=== PATIENT | male | born 1970 | race Two or more races ===

== ENCOUNTER 2018-01-06 16:52 | Inpatient (IN) | payer OTHER ==
[~2018-01-06] VITALS: Ht 175.3 cm; Wt 81.8 kg
[~2018-01-06 16:52] MED LIST: CLON2TAB3; DIVA500T59; ZOLP10TA6
[2018-01-06 18:33] LABS: Basophils # (auto) 0.1 uL; Basophils % (auto) 0.5 % (0.0-2.0); Eosinophils # (auto) 0.6 uL; Eosinophils % (auto) 6.1 % (0.0-7.0); Hematocrit 41.7 % (41.0-53.0); Hemoglobin 14.1 g/dL (13.5-17.5); Lymphocytes # (auto) 1.6 uL; Lymphocytes % (auto) 14.8 % (10.0-50.0); Mean Corpuscular Hemoglobin 30.8 pg (28.0-32.0); Mean Corpuscular Hgb Conc. 33.8 g/dL (32.0-36.0); Mean Corpuscular Volume 91.1 fL (80.0-100.0); Monocytes % (auto) 9.8 % (0.0-12.0); Neutrophils # (auto) 7.3 uL; Neutrophils % (auto) 68.8 % (37.0-80.0); Nucleated Red Blood Cells % 0.1 %; Platelet Count (auto) 230 10^3/uL (140-450); Red Blood Cells 4.58 10^6/uL (4.5-5.90); Red Cell Distribution Width 13.6 % (11.8-14.3); White Blood Cell 10.6 10^3/uL (4.4-10.8)
[2018-01-06 18:48] LABS: Albumin 2.9 g/dL (3.4-5.0); BUN/Creatinine Ratio 14.4; Calcium 8.3 mg/dL (8.5-10.1)
[2018-01-06 18:51] LABS: Bilirubin, Total 0.2 mg/dL (0.2-1.0); Total Protein 6.5 g/dL (6.4-8.2)
[2018-01-06] MEDS ORDERED: SODIUM CHLORIDE 0.9% 1,000 ML IVB ONE (19:02)
[2018-01-06] MEDS ORDERED: cefTRIAXone 1GM/10ml IVPUSH 10 ML IV ONE (19:15)
[2018-01-06] MEDS: LACTATED RINGER'S 1,000 ML IV SCH ×3 (20:00→23:40)
[2018-01-06 20:06] LABS: INR 0.92 (0.9-1.15); Partial Thromboplastin Time 30.5 sec (22.64-33.71)
[2018-01-06] MEDS ORDERED: ACETAMINOPHEN 500 MG TAB PO PRN (20:45)
[2018-01-06] MEDS ORDERED: HYDROcodone-ACET 5/325MG TAB PO PRN (20:45)
[2018-01-06] MEDS: ONDANSETRON HCL 4 MG/2 ML VIAL IV PRN (20:51)
[2018-01-06] MEDS: MORPHINE SULFATE 8mg/ml INJ SDV IV PRN (20:51)
[2018-01-06 21:30] VITALS: BP 100/53
[2018-01-06] MEDS: TEMAZEPAM 15 MG CAP PO PRN (23:36)
[2018-01-07] MEDS ORDERED: risperiDONE 1 MG TAB PO ONE
[2018-01-07 04:54] VITALS: BP 92/50
[2018-01-07] MEDS ORDERED: SUCCINYLCHOLINE CHLORIDE 20 MG/ML 10ML VIAL IV ONE (07:02)
[2018-01-07] MEDS ORDERED: LIDOCAINE 1% (LOCAL ANESTH.) PF 5ml SDV ONE (07:02)
[2018-01-07] MEDS ORDERED: ROCURONIUM 10MG/ML 10ML VIAL IV ONE (07:03)
[2018-01-07] MEDS ORDERED: ceFAZolin 1GM/50ML 50 ML IV ONE (07:03)
[2018-01-07] MEDS ORDERED: MIDAZOLAM HCL 1MG/1ML-2 ML VIAL ONE (07:03)
[2018-01-07] MEDS ORDERED: PROPOFOL 10 MG/ML 20 ML IV ONE (07:03)
[2018-01-07] MEDS ORDERED: fentaNYL CITRATE 100 MCG/2 ML VL ONE (07:16)
[2018-01-07] MEDS ORDERED: MORPHINE SULFATE 8mg/ml INJ SDV IV PRN (07:30)
[2018-01-07] MEDS ORDERED: NALOXONE HCL 0.4 MG/ML VIAL IV PRN (07:30)
[2018-01-07] MEDS ORDERED: ONDANSETRON HCL 4 MG/2 ML VIAL IV ONE (07:30)
[2018-01-07] MEDS ORDERED: KETOROLAC TROMETH 30 MG/ML 1ML VIAL ONE (07:38)
[2018-01-07] MEDS ORDERED: GLYCOPYRROLATE 0.2 MG/ML 1ML VIAL ONE (07:43)
[2018-01-07] MEDS ORDERED: NEOSTIGMINE 1 MG/ML INJ (10mg/10ML VIAL) ONE (07:43)
[2018-01-07 09:00] VITALS: BP 101/58
[2018-01-07] MEDS: risperiDONE 1 MG TAB PO SCH (10:36)
[2018-01-07] MEDS: LACTATED RINGER'S 1,000 ML IV SCH ×3 (10:37→19:45)
[2018-01-07] MEDS: ONDANSETRON HCL 4 MG/2 ML VIAL IV PRN (10:58)
[2018-01-07] MEDS: MORPHINE SULFATE 8mg/ml INJ SDV IV PRN (10:58)
[2018-01-07 13:00] VITALS: BP 102/57
[2018-01-07 17:00] VITALS: BP 94/49
[2018-01-07] MEDS: TEMAZEPAM 15 MG CAP PO PRN (21:59)
[2018-01-07 22:00] VITALS: BP 109/64
[2018-01-08] MEDS: LACTATED RINGER'S 1,000 ML IV SCH (03:45)
[2018-01-08 05:00] VITALS: BP 101/59
[2018-01-08 09:00] VITALS: BP 110/60
[2018-01-08 09:59] LABS: Basophils # (auto) 0.1 uL; Basophils % (auto) 0.9 % (0.0-2.0); Eosinophils # (auto) 0.5 uL; Eosinophils % (auto) 8.5 % (0.0-7.0); Hematocrit 41.3 % (41.0-53.0); Hemoglobin 13.9 g/dL (13.5-17.5); Lymphocytes # (auto) 1.2 uL; Lymphocytes % (auto) 20.2 % (10.0-50.0); Mean Corpuscular Hemoglobin 30.6 pg (28.0-32.0); Mean Corpuscular Hgb Conc. 33.7 g/dL (32.0-36.0); Mean Corpuscular Volume 90.7 fL (80.0-100.0); Monocytes # (auto) 0.5 uL; Monocytes % (auto) 7.9 % (0.0-12.0); Neutrophils # (auto) 3.8 uL; Neutrophils % (auto) 62.5 % (37.0-80.0); Platelet Count (auto) 219 10^3/uL (140-450); Red Blood Cells 4.55 10^6/uL (4.5-5.90); Red Cell Distribution Width 13.3 % (11.8-14.3); White Blood Cell 6.1 10^3/uL (4.4-10.8)
[2018-01-08 10:14] LABS: BUN/Creatinine Ratio 7.7; Calcium 8.2 mg/dL (8.5-10.1); Potassium 4.3 mmol/L (3.5-5.1)
[2018-01-08] MEDS: risperiDONE 1 MG TAB PO SCH (10:18)
[2018-01-08 13:00] VITALS: BP 113/76
[2018-01-08 14:54] VITALS: BP 110/60
== END 2018-01-08 15:51 | disposition home or self-care (01) | DRG 225 ==
LOC: ER 16:57 → OVERFLOW 16:58 → CENTRAL 22:42
PROVIDERS: ADMIT Nurse Practitioner Family; ATTEND Internal Medicine
PROC: 0DTJ4ZZ Resection of Appendix, Percutaneous Endoscopic Approach (ICD-10-PCS; principal; 2018-01-07 07:05)
DX: K35.80 Unspecified acute appendicitis (principal); F20.9 Schizophrenia, unspecified; G47.00 Insomnia, unspecified; F41.9 Anxiety disorder, unspecified; F15.90 Other stimulant use, unspecified, uncomplicated; F17.210 Nicotine dependence, cigarettes, uncomplicated; Z79.899 Other long term (current) drug therapy; Z82.49 Family history of ischemic heart disease and other diseases of the circulatory system
CPT/HCPCS: 36415; 71045; 74176; 80048; 80053; 83735; 85025; 85610; 85730; 86850; 86900; 86901; 87081; 94761; J0330; J0690; J1885; J2250; J2270; J2405; J2704

== ENCOUNTER 2018-01-24 08:59 | Emergency (ER) | payer OTHER ==
[~2018-01-24] VITALS: Ht 177.8 cm; Wt 72.6 kg
[2018-01-24 09:52] VITALS: BP 136/97
== END 2018-01-24 10:15 | disposition home or self-care (01) ==
LOC: ER 09:06
DX: K35.2 Acute appendicitis with generalized peritonitis (principal); Z48.02 Encounter for removal of sutures; F17.210 Nicotine dependence, cigarettes, uncomplicated; F12.10 Cannabis abuse, uncomplicated